=== PATIENT | female | born 1980 | race Caucasian/White ===

== ENCOUNTER 2024-09-28 11:18 | Emergency (ER) | payer BC, SELFPAY ==
--- NOTE | 2024-09-28 11:27 | ED_ITS ---
HPI - General Adult General Chief complaint: Allergic Reaction Stated complaint: Allergic reaction Time Seen by Provider: 09/28/24 11:52 Source: patient and family Mode of arrival: ambulatory Limitations: no limitations History of Present Illness ED Provider: Cecily Woody PA-C HPI narrative: 43 yo female presents to the ER for evaluation of facial swelling that started yesterday. She reports about 1 week ago she started having bilateral ear swelling, redness, scaling, itching skin after wearing earrings. Treated with topical hydrocortisone and oral benadryl with overall improvement. yesterday woke up with swelling and itching under her eyes and on the back of her neck. took benadryl this morning. no tongue, lip or oral swelling/tingling. not on any medications. had a similar (milder) presentation when she had her nose pierced years ago. complaint: allergic reaction Onset (ago): day(s) Location: face and neck Radiation: non-radiation Severity: moderate Quality: other (itching) Pain Consistency: intermittent Relieving factors: medication Exacerbating factors: none Associated symptoms: denies other symptoms Treatments prior to arrival: other (benadryl) Related Data Previous Rx's ?Medication ?Instructions ?Recorded cetirizine 10 mg tablet (Zyrtec) 10 mg PO DAILY #14 tabs 09/28/24 prednisone 20 mg tablet 40 mg (2 x 20 mg) PO DAILY #8 tabs 09/28/24 Allergies Allergy/AdvReac Type Severity Reaction Status Date / Time No Known Allergies Allergy Verified 09/28/24 11:31 Review of Systems Review of Systems: Yes all other systems are reviewed and are negative [facility] Social History Social History Advance Directives: No Advance Directives Information Provided: Yes Do you have a plan to hurt others: No Plan Physical Exam ED Vital Signs: Vital Signs - 24 hr 09/28/24 11:29 09/28/24 12:44 Temperature 97.7 F 96.9 F Pulse Rate 103 H 100 Respiratory Rate 20 16 Blood Pressure 147/90 H 157/83 H Pulse Oximetry 100 100 Oxygen Delivery Method Room Air Room Air BMI result Body Mass Index 33.2 Appearance: Alert. Oriented X3. No acute distress. Head/face: normocephalic, atraumatic. face is mildly swollen in the eyes and maxillary areas Eyes: Pupils equal, round and reactive to light. mild periorbital edema bilaterally ENT: Pharynx normal. No tonsillar swelling or exudate. no lip swelling, uvula midline, normal voice. Neck: Normal inspection. Neck supple. CVS: Normal heart rate and rhythm. Pulses normal. Respiratory: No respiratory distress. Breath sounds normal. Skin: Skin warm and dry. Normal skin color. Normal skin turgor. erythematous rash on the back of the neck and upper back. scaling falking skin on the ears bilaterally. Extremities: No lower extremity edema. No joint swelling. Neuro/psych: Oriented X 3. No motor deficit. No sensory deficit. CN II-XII intact. Normal speech and cognition. Course Course Course Narrative: This is a rapid medical exam performed by Sandeep Acevedo NP: Additional HPI, ROS, PE not included below will be deferred to primary provider. Patient is a 43-year-old female presenting to the ED with complaint of facial swelling since yesterday, itching in ears and scaliness behind ears for the past week. Unsure if symptoms are related to eating oysters and whitefish salad on [employer]REG. States has eaten both of these before. Used topical hydrocortisone and benadryl 50mg just prior to arrival. Patient awake, A+Ox3, in no acute distress, periorbital swelling noted, no hives, lungs CTA throughout, no angioedema or uvula edema. Plan: prednisone ordered Medications Administered Discontinued Medications Generic Name Dose Route Start Last Admin Trade Name Freq PRN Reason Stop Dose Admin Prednisone 60 mg 09/28/24 11:32 09/28/24 11:53 Prednisone 20 Mg Tablet PO 09/28/24 11:33 60 mg ONCE ONE Administration Medical Decision Making Medical Decision Making [facility] Narrative: 43 yo female presenting with facial swelling and a rash to her ears and neck after wearing earrings. VSS. no airway or oral involvement. benadryl on board from 11am. prednisone ordered from triage. patient monitored. no progression of symptoms. likely hypersensitivity reaction from her earrings. will continue antihistamines and d/c with prednisone. advised outpatient follow up with PCP and possible allergy testing. return precautions were discussed. Differential Diagnosis Differential Diagnoses: The differential diagnosis associated with the presentation includes allergic reaction, anaphylaxis, angioedema, periorbital cellulitis, hypersensitivity reaction Admission/Observation Consideration of admission/observation: Escalation of care including admission/observation considered Independent Historian Clinical information obtained from an independent historian. History obtained from or confirmed by: Spouse Prescription Management I considered prescription management with: Other (antihistamine, epipen, steroids) Critical Care Time Critical Care Time Critical Care Time: No Discharge Plan Discharge Clinical Impression: Allergic reaction Qualifiers: Encounter type: initial encounter Qualified Code(s): T78.40XA - Allergy, unspecified, initial encounter Patient Disposition: Home, Self-Care Instructions: General Allergic Reaction (ED), Allergy Testing (ED) Additional Instructions: take the prescibed prednisone, starting tomorrow, for the next 4 days take the prescribed zyrtec until all of your symptoms are resolved you can continue benadryl and hydrocortisone as needed for itching recommend aquaphor for the dry skin follow up with your doctor If you develop new or worsening symptoms call 911 or come back to the ER for further evaluation. Prescriptions: New prednisone 20 mg tablet 40 mg PO DAILY Qty: 8 0RF cetirizine [Zyrtec] 10 mg tablet 10 mg PO DAILY Qty: 14 0RF Interventions: ED Discharge Assessment Last Done: 09/28/24 12:44 Discharge Date/Time: 09/28/24 12:45 Print Language: Romanian
[2024-09-28 11:29] VITALS: BP 147/90; PULSE 103; RESP 20; TEMP 36.5; O2SAT 100; BMI 33.2
[2024-09-28] MEDS: predniSONE 20 MG TABLET 60 MG PO (11:53)
--- NOTE | 2024-09-28 11:56 | PC.NURSE ---
pt a&ox3, rash to lower neck/trap area- pt also states its on her ears and her face is mildly swollen in the orbital area. pt medicated with prednisone per order, family at bedside, will continue plan of care
[2024-09-28 12:44] VITALS: BP 157/83; PULSE 100; RESP 16; TEMP 36.1; O2SAT 100
== END 2024-09-28 12:45 | disposition home or self-care (01) ==
PROVIDERS: Emergency Provider Emergency Medicine
DX: T78.40XA Allergy, unspecified, initial encounter (principal); X58.XXXA Exposure to other specified factors, initial encounter
CPT/HCPCS: 99282; 99283

== ENCOUNTER 2024-10-05 13:59 | Outpatient (AMB) | payer BC, SELFPAY ==
--- NOTE | 2024-10-05 14:07 | MHC.OFFWIV ---
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 She was seen at the [facility] this past Tuesday (1 week ago) for an allergic reaction. This included erythema, itching, rash, warmth, of her eyelids, face, neck, ears. She was given prednisone and started on Zyrtec. She states that she completed prednisone course yesterday, and swelling has started to recur. She does not know the source of the allergy, so she is unable to determine if she was re-exposed. Has been taking Zyrtec. Also has hydrocortisone and Benadryl at home. Denies any difficulty breathing or shortness of breath. Denies any tongue itching or swelling. [facility] Social History Patient Tobacco Use Status: Never used Tobacco Review of Systems Const All systems reviewed & are unremarkable except as noted in HPI and below Physical Exam Vital Signs: Last Vital Signs Pulse 104 H 10/05/24 14:17 BP 130/100 H 10/05/24 14:17 Pulse Ox 98 10/05/24 14:17 Oxygen Delivery Method Room Air 10/05/24 14:17 BMI result Body Mass Index 33.6 Const General: cooperative and no acute distress Limitations: no limitations HEENT Other: mild periorbital and upper cheek swelling. No rashes/hives noted. No erythema. Ears: hearing grossly normal bilaterally General nose exam: Normal external nose present Mouth: Normal oral and palatal mucosa present Throat: Yes posterior oropharynx normal Neck Neck: Yes no lymphadenopathy Resp Effort & Inspection: normal respiratory effort Auscultation: clear to auscultation bilaterally Cardio Rate: regular rate Rhythm: regular rhythm Skin General skin exam: no rashes or lesions noted Extrem General: Yes capillary refill normal and Yes no clubbing, cyanosis or edema Psych Appearance: grossly normal Mental Status: mental status grossly normal Speech and movement: Normal speech and movement present Assessment & Plan Assessment & Plan (1) Allergic reaction: Code(s): T78.40XA - Allergy, unspecified, initial encounter Qualifiers: Encounter type: subsequent encounter Qualified Code(s): T78.40XD - Allergy, unspecified, subsequent encounter Plan: At this point, patient does not know the allergen causing these reactions. It is possible she is having a rebound reaction after stopping the prednisone. I am going to start her on a slow/10 day of prednisone. She has taken this previously and did not experience any negative side effects. We reviewed indications, use of this medication. I feel it would be prudent for her to have EpiPen available, should a severe reaction and potential anaphylaxis occur. We discussed this and reviewed use of it, including necessity of ER visit following any epi pen use. I encouraged her to continue to utilize Zyrtec daily, particularly while still having symptoms. She is between primary care providers at this time, as she recently left practice at [facility] and is awaiting appointment with [facility] group in [place] in November. Due to this, I am going to enter an allergy/immunology referral for her for testing. Patient verbalizes understanding and agrees to plan as discussed today. Orders: Referrals Allergy & Immunology Referral T78.40XD - Allergy, unspecified, subsequent encounter Medications: New epinephrine (EpiPen 2-Lenny) Use auto-injector epi-pen for anaphylactic reaction. Use second epi-pen 10-15 minutes later if symptoms persist. 0.3 mg (0.3 mL) IM Q10M PRN 2 ea 1RF anaphylaxis T78.40XD - Allergy, unspecified, subsequent encounter prednisone Tapered dosing: Take 5 tabs for 2 days, then 4 tabs for 2 days, then 3 tabs for 2 days, then 2 tabs for 2 days, then 1 tab for 2 days. 10 total days. 30 tabs. 10 mg PO DAILY 10 days 30 tabs 0RF T78.40XD - Allergy, unspecified, subsequent encounter Discontinued prednisone Discontinued Reason: Patient Completed Course 40 mg (2 x 20 mg) PO DAILY 8 tabs 0RF Coding Level of Care Code Est Pt Level 4 (66255) Diagnoses Allergic reaction, subsequent encounter T78.40XD Encounter type: subsequent encounter
[2024-10-05 14:17] VITALS: BP 130/90; PULSE 104; O2SAT 98; BMI 33.6
== END 2024-10-05 15:06 | disposition home or self-care (01) ==
PROVIDERS: Visit Provider Nurse Practitioner Family
DX: T78.40XD Allergy, unspecified, subsequent encounter (principal)

== ENCOUNTER → 2024-10-05 13:59 | Outpatient (BNVA) | payer BC, SELFPAY | PROVIDERS: Visit Provider Nurse Practitioner Family ==

== ENCOUNTER 2025-04-09 17:57 | Emergency (ER) | payer BC, SELFPAY ==
[2025-04-09 18:02] VITALS: BP 126/86; PULSE 93; O2SAT 100
[2025-04-09 18:10] VITALS: BP 149/74; PULSE 86; RESP 18; TEMP 36.3; O2SAT 100; BMI 33.3
--- NOTE | 2025-04-09 18:10 | ED_ITS ---
HPI - Anxiety General Chief Complaint: Anxiety Stated Complaint: panic attack Time Seen by Provider: 04/09/25 19:21 Source: patient, RN notes reviewed and old records reviewed Mode of arrival: EMS Limitations: no limitations History of Present Illness ED Provider: Priyanka HPI narrative: 44-year-old female presents for evaluation of ?a panic attack. ? Patient reports that she was driving to a rowing class for exercise She reports that she started to feel short of breath and then began ?panicking and getting very anxious. She then developed some tingling in both of her hands. She this was a panic attack because this has happened in the past on several occasions most recently 1 week ago She used to follow up with a psychologist about 2 years ago when this happened for the 1st time She reports increased stress as she recently lost a friend unexpectedly She never had any chest pain She is currently back to baseline and denies any shortness of breath or tingling She denies any medical complaints. Denies any history of coronary artery disease Related Data Previous Rx's ?Medication ?Instructions ?Recorded cetirizine 10 mg tablet (Zyrtec) 10 mg PO DAILY #14 ta bs 09/28/24 epinephrine 0.3 mg/0.3 mL 0.3 mg (0.3 mL) IM Q10M PRN 10/05/24 injection, auto-injector (EpiPen anaphylaxis #2 ea 2-Lenny) prednisone 10 mg tablet 10 mg PO DAILY 10 days #30 t abs 10/05/24 hydroxyzine HCl 25 mg tablet 25 mg PO TID PRN anxiety #30 tabs 04/09/25 Allergies Allergy/AdvReac Type Severity Reaction Status Date / Time No Known Allergies Allergy Verified 04/09/25 18:13 Review of Systems 2 Constitutional: Constitutional: Denies body ache(s), Denies chills, Denies fever(s) and Denies headache(s) Eyes: Eyes: Denies blurry vision ENT: Denies dizziness, Denies dry mouth and Denies headache(s) Cardiovascular: Cardiovascular: Denies chest pain, Denies chest pain at rest, Denies chest pain with activity, Reports rapid heart rate and Reports dyspnea Respiratory: Respiratory: Denies cough and Reports dyspnea Gastrointestinal: Gastrointestinal: Denies abdominal pain, Denies nausea and Denies vomiting Musculoskeletal: Musculoskeletal: Denies back pain Integumentary/Breasts: Skin/Breast: Denies rash Neurologic: Denies dizziness and Denies headache(s) Psychiatric: Psychiatric: Reports anxiety, Denies depression, Denies auditory hallucinations, Denies hopelessness, Denies irritability, Denies mood swings, Reports panic attacks, Denies paranoia, Denies visual hallucinations, Denies homicidal ideation and Denies suicidal ideation PMFSH Social History Social History Patient Tobacco Use Status: Never used Tobacco Advance Directives: No Advance Directives Information Provided: No Do you have a plan to hurt others: No Plan Physical Exam 2 Vital Signs: Vital Signs: Last Vital Signs Temp 97.3 F 04/09/25 18:10 Pulse 86 04/09/25 18:10 Resp 18 04/09/25 18:10 BP 149/74 H 04/09/25 18:10 Pulse Ox 100 04/09/25 18:10 O2 Del Method Room Air 04/09/25 18:10 BMI result Body Mass Index 33.3 Const: General: healthy appearing, comfortable, no acute distress, alert and awake Nutritional Appearance: well nourished Orientation/consciousness: p atient oriented x3 HEENT: Head: Yes normocephalic and Yes atraumatic Eyes: Eyelids: Yes eyelids normal Conjunctivae: conjunctivae normal S clerae: sclerae normal Corneas: corneas normal Pupils: Equal, round and reactive pupils present EOM: EOMs intact bilaterally Neck: Neck: Yes full ROM Resp: Effort & Inspection: normal respiratory effort, able to speak in complete sentences, no audible wheezes and not labored Auscultation: clear to auscultation bilaterally Cardio: Rate: regular rate Rhythm: regular rhythm GI: Inspection: No distended Palpation (GI): Soft to palpation, not firm, nontender, no guarding and not rigid Skin: General skin exam: elasticity normal Neuro: General: patient oriented x3 Cranial nerves: Yes Equal, round and reactive pupils present and Yes Bilaterally intact EOM present Cognition (Neuro): normal cognition Psych: Appearance: grossly normal Mental Status: mental status grossly normal Speech and movement: Normal speech and movement present Affect: A nxious affect present Attitude: cooperative Thought process: Normal thought process present Thought content: Normal thought content present I nsight: Good insight present (Psych) Judgement: Good judgement present (Psych) Course Course Course Narrative: 04/09/251809 SANTOSH Alonzo This is a Rapid Medical Examination (RME) performed by Tra Hernandez PA-C in triage. Full HPI, ROS, assessment and treatment plan per primary provider in the Main ED. Hx: 44 yo hx of anxiety BIBA for panic attack that occurred while driving. pulled over and called EMS. second episode this week while driving. not currently on meds for anxiety. trying to establish care w/ provider. no SI/HI. reports tingling to hands. no pain. PE/vitals: tearful. Plan: labs, ekg Medical Decision Making Medical Decision Making MDM Narrative: 44-year-old female presents for evaluation of what she describes as a panic attack. She had a sudden onset of witnessed seeing shortness of breath that she could feel coming on. She had associated numbness and tingling in her fingertips. She never had any chest pain. She has no risk factors for ACS, personal history of coronary artery disease. I suspect that this was triggered by the unexpected of her friend, she also reports that her partner is away and she feels somewhat lonely. The patient's labs show a mild leukocytosis to 10.9 of unclear etiology, no significant anemia. Normal platelet count. Chemistries show no electrolyte abnormalities, renal function within normal limits, troponin undetectable. A random glucose of 122. Patient's EKG does show a normal sinus rhythm. She does have T-wave inversions in lead 3. I feel this is less likely related to acute ACS as the patient never had any chest and has alternative diagnosis to explain her symptoms. We can refer her to cardiolody for outpatient workup. Lungs are clear to auscultation, she is not hypoxic. Differential Diagnosis Differential Diagnoses: The differential diagnosis associated with the presentation includes Anxiety Palpitations ACS less likely Dyspnea Admission/Observation Consideration of admission/observation: Escalation of care including admission/observation considered Lab Data [facility] Lab Attestation statement: I reviewed the patient's lab results. As above 04/09/25 18:44 04/09/25 18:44 Labs: Lab Results 04/09/25 Range/Units 18:44 WBC 10.9 H (4.8-10.8) X10*3/uL RBC 4.66 (4.20-5.50) X10*6/uL Hgb 14.9 (12.0-16.0) g/dl Hct 41.2 (37.0-47.0) % MCV 88.4 (80.0-98.0) fL MCH 32.0 (27.0-33.0) pg MCHC 36.2 H (31.0-35.0) g/dl RDW 11.5 (11.0-16.0) % Plt Count 315 (160-400) X10*3/uL MPV 9.1 L (9.4-12.3) fL Immature Gran % (Auto) 0.4 (0.0-0.4) % Neut % (Auto) 74.6 H (45-73) % Lymph % (Auto) 17.6 L (20-40) % Bates % (Auto) 6.1 (2-11) % Eos % (Auto) 0.7 (0-4) % Baso % (Auto) 0.6 (0-2) % Lymph # (Auto) 1.9 (1.2-4.9) X10*3/uL Bates # (Auto) 0.7 (0.1-1.2) X10*3/uL Eos # (Auto) 0.1 (0.0-0.4) X10*3/uL Baso # (Auto) 0.1 (0.0-0.2) X10*3/uL Abs Immat Gran (auto) 0.04 H (0.00-0.03) X10*3/uL Absolute Neuts (auto) 8.1 (2.0-8.3) x10*3/uL Absolute Nucleated RBC 0.000 (0.0-0.012) X10*3/uL Nucleated RBC % (auto) 0.0 (0.0-0.2) /100WBC Sodium 140 (135-145) mmol/L Potassium 3.4 (3.3-5.1) mmol/L Chloride 102 (96-108) mmol/L Carbon Dioxide 25 (22-29) mmol/L Anion Gap 16 (12-20) BUN 15 (9-16) mg/dL Creatinine 0.75 (0.5-1.4) mg/dL Estim Creat Clear Calc 106.5 Estimated GFR > 60 Random Glucose 122 H (60-115) mg/dL Calcium 9.4 (8.4-10.2) mg/dL Magnesium 1.6 (1.6-2.6) mg/dL Total Bilirubin 0.4 (0.0-1.0) mg/dL AST 24 (5-31) U/L ALT 21 (0-31) U/L Alkaline Phosphatase 56 (39-117) U/L Troponin I High Sens < 2.7 (<3.5-17.0) ng/L Total Protein 7.1 (6.5-8.0) g/dL Albumin 4.6 (3.5-5.0) g/dL Discharge Plan Discharge Clinical Impression: Acute anxiety Patient Disposition: Home, Self-Care Instructions: Anxiety (ED) Additional Instructions: Your workup in the ER today was reassuring It is likely that your symptoms were related to an anxiety attack You may take hydroxyzine as needed for any further anxiety attacks This may make you drowsy Follow-up with your primary doctor, return for new or worsening symptoms. I also recommend following the instructions of the care team Prescriptions: New hydroxyzine HCl 25 mg tablet 25 mg PO TID PRN (Reason: anxiety) Qty: 30 0RF No Action cetirizine [Zyrtec] 10 mg tablet 10 mg PO DAILY Qty: 14 0RF epinephrine [EpiPen 2-Lenny] 0.3 mg/0.3 mL auto-injector 0.3 mg IM Q10M PRN (Reason: anaphylaxis) Qty: 2 1RF Rx Instructions: Use auto-injector epi-pen for anaphylactic reaction. Use second epi-pen 10-15 minutes later if symptoms persist. prednisone 10 mg tablet 10 mg PO DAILY 10 Days Qty: 30 0RF Rx Instructions: Tapered dosing: Take 5 tabs for 2 days, then 4 tabs for 2 days, then 3 tabs for 2 days, then 2 tabs for 2 days, then 1 tab for 2 days. 10 total days. 30 tabs. Referrals: [facility] [Provider Group] Print Language: Palauan
--- NOTE | 2025-04-09 18:12 | ECG_ITS ---
Test Reason : ANXIETY Blood Pressure : */* mmHG Vent. Rate : 86 BPM Atrial Rate : 86 BPM P-R Int : 126 ms QRS Dur : 80 ms QT Int : 372 ms P-R-T Axes : 27 34 -16 degrees QTcB Int : 445 ms Normal sinus rhythm Nonspecific ST and T wave abnormality Abnormal ECG No previous ECGs available Referred By: Alyssa Hernandez Electronically Signed By: CRISTIANO BOGGS
[2025-04-09 18:52] LABS: MANUAL DIFF FLAG NO
[2025-04-09 18:53] LABS: Hematocrit 41.2 % (37.0-47.0); Hemoglobin 14.9 g/dl (12.0-16.0); Imm Gran Abs Auto 0.04 X10*3/uL (0.00-0.03); Imm Gran Pct Auto 0.4 % (0.0-0.4); Lymphocytes Absolute Auto 1.9 X10*3/uL (1.2-4.9); Mean Corpuscular HGB Conc 36.2 g/dl (31.0-35.0); Mean Corpuscular Hemoglobin 32.0 pg (27.0-33.0); Mean Corpuscular Volume 88.4 fL (80.0-98.0); NRBC Abs Auto 0.000 X10*3/uL (0.0-0.012); NRBC Pct Auto 0.0 /100WBC (0.0-0.2); Platelet Count 315 X10*3/uL (160-400); Red Blood Count 4.66 X10*6/uL (4.20-5.50); White Blood Count 10.9 X10*3/uL (4.8-10.8)
[2025-04-09 19:29] LABS: Alanine Aminotransferase 21 U/L (0-31); Albumin Level 4.6 g/dL (3.5-5.0); Alkaline Phosphatase 56 U/L (39-117); Anion Gap 16 (12-20); Aspartate Amino Transferase 24 U/L (5-31); Blood Urea Nitrogen 15 mg/dL (9-16); Calcium 9.4 mg/dL (8.4-10.2); Carbon Dioxide 25 mmol/L (22-29); Chloride 102 mmol/L (96-108); Creatinine Clr Calc Pharmacy 106.5; Estimated Glomerular Filt Rate > 60; Magnesium 1.6 mg/dL (1.6-2.6); Potassium 3.4 mmol/L (3.3-5.1); Sodium 140 mmol/L (135-145); Total Protein 7.1 g/dL (6.5-8.0)
[2025-04-09 19:38] LABS: Troponin-I High Sensitivity < 2.7 ng/L (<3.5-17.0)
--- NOTE | 2025-04-09 23:06 | MHC.CARE ---
RAD Team completed [facility] referral for this pt. Will follow up tomorrow
== END 2025-04-09 19:57 | disposition home or self-care (01) ==
PROVIDERS: Physician Assistant Medical; Emergency Provider Emergency Medicine; PCP Nurse Practitioner Family
DX: F41.9 Anxiety disorder, unspecified (principal)
CPT/HCPCS: 36415; 80053; 83735; 84484; 85025; 93005; 99283; 99284; S9485

== ENCOUNTER → 2025-04-09 18:12 | Outpatient (BNV) | payer BC, SELFPAY | PROVIDERS: Emergency Provider Emergency Medicine; PCP Nurse Practitioner Family; Visit Provider Internal Medicine | DX: R94.31 Abnormal electrocardiogram [ECG] [EKG] (principal); F41.9 Anxiety disorder, unspecified | CPT/HCPCS: 93010 ==